=== PATIENT | female | born 1955 | race Caucasian/White ===

== ENCOUNTER 2021-01-22 10:18 | Emergency (ER) | payer BC ==
[~2021-01-22] VITALS: Ht 167.6 cm; Wt 67.7 kg
--- NOTE | 2021-01-22 10:54 | RAD ---
Three-view right foot study Clinical indications: Mid right foot pain since twisting injury last night. FINDINGS: No acute fracture or dislocation or lytic process is seen. No plantar spur of the calcaneus is evident. Soft tissue ossification center is seen just dorsal to the neck of the talus with underl mendy small exostosis of the neck of the talus. 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 IMPRESSION: No acute fracture. Electronically signed by: Josue Baez MD (01/22/2021 10:52 AM) [id number]
--- NOTE | 2021-01-22 11:38 | PHYS DOC ---
Past History Past Medical History: Anxiety, Depression, Hypertension Past Surgical History: Hysterectomy Additional Smoking Information: 1-1.5 PACKS/DAY Alcohol Use: Occasionally General Adult EDM: Chief Complaint: FOOT INJURY PAIN HPI: HPI: 65-year-old female who denies any significant past medical history presents to the ED with her (patient consents to his/her/their knowledge and involvement in pts' medical care), complains of painful anterior right ankle pain after patient accidentally rolled her ankle last night, reports bruising to the top of her ankle, "is it broken?" States she was jumping out of bed and did not realize her foot was asleep. Denies any prior injury to the ankle. No other pain at the right knee or right hip. No history of recent antibiotics or fluoroquinolones. Denied hitting head or lose of consciousness. Is not on any anticoagulants. Review of Systems: Review of Systems: Constitutional: Denies fever or chills Eyes: Denies change in visual acuity HENT: Denies nasal congestion or sore throat Respiratory: Denies cough or shortness of breath Cardiovascular: Denies chest pain or edema GI: Denies nausea, vomiting, Musculoskeletal: Denies back pain or saddle anesthesia Integument: Denies rash or diaphoresis Neurologic: Denies headache, neck pain, focal weakness or sensory changes Psychiatric: Denies depression or anxiety Allergies: Allergies: Allergies Coded Allergies Type Severity Reaction Last Updated Verified No Known Drug Allergies 01/22/21 No Physical Exam: PE: Constitutional: Well developed, well nourished, no acute distress, non-toxic appearance, thin/mireles/healthy appearing HENT: Normocephalic, atraumatic, no signs of head trauma Eyes: EOMI, conjunctiva normal, no discharge. Neck: Normal range of motion, supple, no midline neck pain Cardiovascular: S1/2 present, regular rhythm Lungs & Thorax: Speaking in full sentences, bilateral equal chest rise, no tachypnea or increased work of breathing Skin: Warm, dry, Back: No midline tenderness, no CVA tenderness. [] Extremities: no cyanosis, no lower extremity edema, ttp over dorsal aspect of right foot with 3 x 3 cm area of bruising/contusion, DP/PT pulses intact, no pain at right malleoli, right fibular head or right knee, motion sariah ankle rolled inward/inversion mechanism of injury Neurologic: Alert and oriented X 3, normal motor function, normal sensory function, no focal deficits noted. [] Psychologic: Affect normal, judgement normal, mood normal. [] Current Patient Data: Vital Signs: Vital Signs Date Time Temp Pulse Resp B/P (MAP) Pulse Ox O2 Delivery O2 Flow Rate FiO2 01/22/21 10:25 98.4 73 20 123/80 (94) 99 Room Air EKG: EKG: [] Radiology/Procedures: Radiology/Procedures: IMAGING REPORT Signed PATIENT: CHET VILLANUEVA ACCOUNT: [id number] : 1955 LOCATION: ER AGE: 65 SEX: F EXAM STATUS: REG ER ORD. PHYSICIAN: ARSEN MORA DO REASON: right mid foot pain since twisting it last night PROCEDURE: FOOT RIGHT 3V Three-view right foot study Clinical indications: Mid right foot pain since twisting injury last night. FINDINGS: No acute fracture or dislocation or lytic process is seen. No plantar spur of the calcaneus is evident. Soft tissue ossification center is seen just dorsal to the neck of the talus with underlying small exostosis of the neck of the talus. 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 IMPRESSION: No acute fracture. Electronically signed by: Carolyn Baez MD (01/22/2021 10:52 AM) [id number] DICTATED AND SIGNED BY: CAROLYN BAEZ MD DATE: 01/22/21 1049 CC: ANTONI MCDOWELL PAC; ARSEN MORA DO ~MTH0 0 Heart Score: C/O Chest Pain: No Risk Factors: Risk Factors: DM, Current or recent (<one month) smoker, HTN, HLP, family history of CAD, obesity. Risk Scores: Score 0 - 3: 2.5% MACE over next 6 weeks - Discharge Home Score 4 - 6: 20.3% MACE over next 6 weeks - Admit for Clinical Observation Score 7 - 10: 72.7% MACE over next 6 weeks - Early Invasive Strategies Course & Med Decision Making: Course & Med Decision Making Pertinent Labs and Imaging studies reviewed. (See chart for details) Concern for right ankle inversion injury, sprain. Imaging with no obvious fracture. Ortho-Glass splint and crutches were offered, patient declined stating she has crutches at home and is preferring an ankle wrap. Pain well controlled in ED. Recommend conservative management with rice instructions & [id number] analgesia. Will discharge home with strict ED return precautions were given for neurologic deficits, skin color changes or repeat injury. Encouraged urgent outpatient follow-up with PMD and orthopedic surgery or podiatry. Life-threatening processes were considered but are low suspicion at this time, given history, physical exam and ED workup. Pt was educated on all prescription medications and adverse effects. All patient's questions were answered and pt was stable at time of discharge. Life/limb-threatening differential includes but is not limited to, trauma (fracture, dislocation, laceration, compartment syndrome, tendon or ligament injury), neurovascular injury or deficitcva/tia, infection (osteomyelitis, abscess, cellulitis, septic arthritis, necrotizing fasciitis), deep vein thrombosis, renal/cardiac/liver disease, medication adverse effect, lymphedema/anasarca, vascular insufficiency or malignancy, I spoken with the patient and her caregivers. I explained the patient's condition, diagnoses and treatment plan based on the information available to me at this time. I have answered the patient and her caregiver's questions and addressed any concerns. The patient and her caregivers have a good understanding of patient's diagnosis, condition and treatment plan as can be expected at this point. Vital signs have been stable. Patient's condition is stable and appropriate for discharge from the emergency department. Patient will pursue further outpatient evaluation with primary care physician or other designated or consulting physician as outlined in the discharge instructions. The patient and/or caregivers are agreeable to this plan of care and follow-up instructions have been explained in detail. The patient and/or caregivers have received these instructions in written form and have expressed an understanding of the discharge instructions. The patient and/or caregivers are aware that any significant change of condition or worsening of symptoms should prompt immediate return to this or the closest emergency department or call to 911. Shelbi Disclaimer: Shelbi Disclaimer: This electronic medical record was generated, in whole or in part, using a voice recognition dictation system. Departure Departure: Impression: Primary Impression: Right ankle sprain Additional Impression: Contusion of ankle, right Disposition: 01 HOME / SELF CARE / HOMELESS Condition: STABLE Referrals: ANTONI MCDOWELL PAC (PCP) for routine care Patient Instructions: Ankle Sprain, Contusion, RICE - Routine Care for Injuries Additional Instructions: FOLLOW UP WITH ORTHOPEDICS: For definitive management within 1 week [facility] [address] [place] [address] OR FOLLOW UP WITH PODIATRY: FOR DEFINITIVE MANAGEMENT Podiatric Surgery [address] [facility] [place] [address] EMERGENCY DEPARTMENT GENERAL DISCHARGE INSTRUCTIONS Thank you for coming to [facility] (ED) today and trusting us with you care. We trust that you had a positivie experience in our Emergency Department. If you wish to speak to the department management, you may call the director at [phone]. YOUR FOLLOW UP INSTRUCTIONS ARE FOLLOWS: 1. Do you have a private Doctor? If you do not have a private doctor, please ask for a resource list of physicians or clinics that may be able to assist you with follow up care. 2. The Emergency Physician has interpreted your x-rays. The X-Ray specialist will also review them. If there is a change in the findings, you will be notified in 48 hours when at all possible. 3. A lab test or culture has been done, your results will be reviewed and you will be notified if you need a change in treatment. ADDITIONAL INSTRUCTIONS AND INFORMATION: 1. Your care today has been supervised by a physician who is specially trained in emergency care. Many problems require more than one evaluation for a complete diagnosis and treatment. We recommend that you schedule your follow up appointment as recommended to ensure complete treatment of you illness or injury. If you are unable to obtain follow up care and continue to have a problem, or if your condition worsens, we recommend that you return to the ED. 2. We are not able to safely determine your condition over the phone nor are we able to give sound medical advice over the phone. For these safety reasons, if you call for medical advice we will ask you to come to the ED for further evaluation. 3. If you have any questions regarding these discharge instructions please call the ED at [phone]. SAFETY INFORMATION: In the interest of safety, wellness, and injury prevention; we encourage you to wear your sealbelt, if you smoke; quite smoking, and we encourage family to use a protective helmet for bicycling and other sporting events that present an increased risk for head injury. IF YOUR SYMPTOMS WORSEN OR NEW SYMPTOMS DEVELOP, OR YOU HAVE CONCERNS ABOUT YOUR CONDITION; OR IF YOUR CONDITION WORSENS WHILE YOU ARE WAITING FOR YOUR FOLLOW UP APPOINTMENT; EITHER CONTACT YOUR PRIMARY CARE DOCTOR, THE PHYSICIAN WHOSE NAME AND NUMBER YOU WERE GIVEN, OR RETURN TO THE ED IMMEDIATELY. [facility] Jan 22, 2021 11:38
[2021-01-22 11:55] VITALS: BP 117/61
== END 2021-01-22 11:55 | disposition home or self-care (01) ==
LOC: ER 10:18
DX: S93.401A Sprain of unspecified ligament of right ankle, initial encounter (principal); F41.9 Anxiety disorder, unspecified; F32.9 Major depressive disorder, single episode, unspecified; I10 Essential (primary) hypertension; F17.200 Nicotine dependence, unspecified, uncomplicated; X50.9XXA Other and unspecified overexertion or strenuous movements or postures, initial encounter; Y93.39 Activity, other involving climbing, rappelling and jumping off; Y92.89 Other specified places as the place of occurrence of the external cause; Y99.8 Other external cause status
CPT/HCPCS: 73630; 99283